=== PATIENT | male | born 1985 | race Caucasian/White ===

== ENCOUNTER → 2023-11-07 10:09 | Outpatient (REF) | payer MEDICARE, SELFPAY | LOC: DHSLP 10:09 | PROVIDERS: ATTENDING PHYSICIAN Internal Medicine Pulmonary Disease; FAMILY PHYSICIAN Emergency Medicine | DX: G47.33 Obstructive sleep apnea (adult) (pediatric) (principal); G47.31 Primary central sleep apnea; R09.02 Hypoxemia | CPT/HCPCS: 95811 ==

== ENCOUNTER 2024-03-10 11:10 | Emergency (ER) | payer MEDICARE, SELFPAY ==
[2024-03-10 11:35] LABS: Glucose - Point of Care 147 mg/dl (70-99)
[2024-03-10 11:37] VITALS: BP 124/74
[2024-03-10 12:17] LABS: Urine Albumin 3+ (Neg - Trace); Urine Bilirubin Negative (Negative); Urine Character Clear (Clear); Urine Color Yellow; Urine Glucose 4+ (Negative); Urine Ketone Negative (Negative); Urine Leukocyte Negative (Negative); Urine Nitrite Negative (Negative); Urine Occult Blood 3+ (Negative); Urine Urobilinogen Negative (Neg - 1+)
[2024-03-10 12:19] LABS: COVID-19 Antigen Negative (Negative)
--- NOTE | 2024-03-10 13:19 | ED.GENMED ---
History of Present Illness
General
Chief Complaint: Cold/Flu/URI Symptoms
Source: patient
Exam Limitations: none
Time Seen by Provider: 03/10/24 13:18
Nursing documentation reviewed up to this point in time: agreed with
History of Present Illness
History of Present Illness:
38 yr old male with past medical history of bipolar depression prematurity at AUTOMATIC MACHINE ATTENDANT shunt lives with mom at home presents to the ER for evaluation of nausea vomiting. Mom reports patient started vomiting yesterday and has vomited 13 times
since. No other sick contacts at home. Pt has felt achy and fatigued.
Past History
Past History
ED Past Medical History: HTN, Hypercholesterolemia, Psychiatric (Bipolar, anxiety) and Other (at , ventricular bleed, hydrocephalus, shunt left side head)
ED Past Surgical History: Brain (Hydrocephalus, AUTOMATIC MACHINE ATTENDANT shunt at , last revision at 18 years of age) and Other (umbilical hernia repair)
Social History
Tobacco: Non-smoker
Drug: None
Personal: Single
Living: with family
Employment: Disabled (Part-time employed at [employer])
Family History
Family History: Other (Noncontributory)
Review of Systems
Review of Systems
Allergies reviewed?: Yes
Other source history: family
All Other Systems: ROS reviewed and negative except as documented in HPI and ROS
Constitutional: Reports no symptoms and fatigue
Respiratory: Reports no symptoms
Cardiac: Reports no symptoms
ABD/GI: Reports nausea and vomiting; Denies abdominal pain or diarrhea
: Reports no symptoms
Skin: Reports no symptoms
Neurological: Reports no symptoms
Psychiatric: Reports no symptoms
Phy Exam
General Physical Exam
General Presentation: no apparent distress
General age: appears stated age
General Skin: warm and dry
General Habitus: normal
General Mental: alert
General Hydration: appears well hydrated
Neurological Exam
Neurological Exam: alert and oriented x3
Course
Orders/Labs/Results
Orders:
Orders
03/10/24 11:39
CR Chest - 2 Views Urgent
Comment:
Reason For Exam: cough
03/10/24 11:52
COVID-19 Antigen Urgent
Source: Nasal Swab
Urinalysis Reflex To Culture Urgent
Date Specimen was Collected: 03/10/24
Time Specimen was Collected: 11:39
Urine Microscopic Reflex Cult Urgent
Influenza A+B Rapid Molecular Stat
JAS Source: Nasal Swab
Specimen Description:
03/10/24 13:31
0.9% Sodium Chloride 1000 ml [Nss] 1,000 ml IV BOLUS
Ondansetron Injectable [Zofran] 4 mg IV NOW STA
03/10/24 13:48
Complete Blood Count/With Diff Urgent
Comprehensive Metabolic Panel Urgent
03/10/24 14:31
Acetaminophen [Tylenol] 650 mg PO NOW STA
03/10/24 15:32
CT Abd/pelvis W Iv Cont Urgent
Comment:
Reason For Exam: hematuria/n/v flu positive
Abnormal Lab Results
03/10/24 03/10/24 03/10/24
11:34 11:52 13:48
RBC 4.48 L 10^6/uL
(4.70-6.10)
Hct 38.1 L %
(39.0-52.0)
Plt Count 126 L 10^3/uL
(130-400)
MPV 12.1 H fL
(7.4-10.4)
Absolute Lymphs (auto) 0.6 L 10^3/uL
(1.2-3.4)
Neutrophils % 77.5 H %
(42.2-75.2)
Lymphocytes % 11.1 L %
(20.5-51.1)
Monocytes % 10.7 H %
(1.7-9.3)
Glucose 102 H mg/dl
(70-99)
Ur Occult Blood Reflex 3+ A
(Negative)
Urine RBC 21-25 A /HPF
(0-2)
Urine Glucose 4+ A
(Negative)
Urine Albumin (Reflex) 3+ A
(Neg - Trace)
POC Glucose 147 H mg/dl
(70-99)
03/10/24 13:48
03/10/24 13:48
Vital Signs
Initial and Last Documented VS:
Initial Vital Signs
Temp Pulse Resp BP Pulse Ox
98.7 F 86 16 124/74 96
03/10/24 11:37 03/10/24 11:37 03/10/24 11:37 03/10/24 11:37 03/10/24 11:37
Last Documented Vital Signs
Temp Pulse Resp BP Pulse Ox
100.2 F 85 16 148/107 95
03/10/24 14:25 03/10/24 14:25 03/10/24 11:37 03/10/24 14:25 03/10/24 14:25
Healthcare Corporate Account Director consulted with Physician
Healthcare Corporate Account Director consulted with physician?: Yes (DR Lyons )
MDM/Problems Addressed
Differential Diagnosis Includes:
Not limited to viral syndrome, COVID, dehydration, /flu
MDM/Problems Addressed:
Patient 38-year-old male with bipolar depression born prematurely developmentally delayed lives with mom presents for nausea vomiting fatigue. Patient found to be flu positive. Patient was medicated for fever along nausea vomiting feeling better
here.incidentally patient was noted to have hematuria 21�25 RBCs in urine. No gross hematuria. Case reviewed with ED physician who does recommend a CAT scan however mom with patient and mom (with whom patient lives with and manages his care) does
not want a CAT scan and would rather follow-up with family doctor as an outpatient for this.
In addition platelets are very minimally low at 126,000 with a normal white count 5.5 and a stable hemoglobin of 13.1. He on reexam feels much better is nontachycardic well-appearing feels well after the home.
Discussed the importance of outpatient follow-up with pcp/urologist , d/c supportive care for fever/flu s/s.
*Radiology
Radiology exam reviewed: radiology read reviewed
*Critical Care Note
Total Time (30-74mins, 75-104mins- exclusive of procedures): Not Applicable
ED Attending Note
-
Portions of this chart may have been created with voice recognition software.� Occasional wrong word or��sound alike� substitutions may have occurred due to the inherent limitations of voice recognition software.
Discharge Plan
Departure
Patient Disposition: Home (Routine Discharge)
Date of Disposition: 03/10/24
Time of Disposition: 16:43
Patient with high blood pressure during this ER visit?: No
Condition: Fair
Covid-19: Not Applicable
Discharge Problem:
Influenza A
Instructions: Fever, Adult (DC), Flu in adults - Discharge instructions
Prescriptions:
No Action
hydroxyzine pamoate 50 MG capsule
50 mg PO BID
clonazepam 0.5 MG tablet
0.5 mg PO Q6HPRN PRN (Reason: anxiety)
gabapentin 300 mg Capsule
300 mg PO BID
duloxetine 20 mg Capsule,Delayed Release(Dr/Ec)
20 mg PO BID
Vraylar 3 mg Capsule
3 mg PO DAILY
metformin 500 mg Tablet
500 mg PO BID@0800,1700 Qty: 60 0RF
(DME) Contour Next Test Strips Strip
Qty: 100 0RF
Rx Instructions:
Pt testing twice a day
glipizide 5 mg Tablet
5 mg PO BID@0800,1700 Qty: 60 0RF
(DME) lancets [Color Lancets] 21 gauge Misc
Qty: 100 0RF
Rx Instructions:
Pt testing 2 times a day
Jardiance 10 mg Tablet
10 mg PO DAILY 30 Days Qty: 30 0RF
carvedilol 6.25 mg Tablet
6.25 mg PO BID Qty: 60 11RF
atorvastatin 10 mg Tablet
10 mg PO QPM Qty: 30 11RF
amlodipine 5 mg Tablet
5 mg PO DAILY Qty: 30 11RF
losartan 25 mg Tablet
25 mg PO DAILY Qty: 30 11RF
furosemide [Lasix] 20 mg tablet
20 mg PO DAILY Qty: 30 11RF
icosapent ethyl [Vascepa] 1 gram capsule
2 g PO BID Qty: 120 11RF
Referrals:
Geetha Patel MD [Family Provider] -
Hitesh José MD [Active] -
Activity Restrictions/Additional Instructions:
As discussed please follow-up with your family doctor in the next several days for reevaluation of your symptoms .
stay well-hydrated .
. You may take Tylenol for fever chills body aches.
In addition please follow-up for further evaluation of blood in urine. You may follow-up with family doctor first/ urology. Also have your platelets rechecked as they are mildly low.
Return if any worsening of symptoms.
Interventions
Interventions:
*Risk Screen - Suicide Last Done: 03/10/24 11:37
*General Assessment Last Done: 03/10/24 14:22
*Neglect/Abuse Screening Last Done: 03/10/24 11:37
ED- Fall Risk Assessment Last Done: 03/10/24 14:22
*ED COVID-19 Vaccine History Last Done: 03/10/24 14:22
*Nursing Disposition Last Done: 03/10/24 17:02
ED- Pulmonary Assessment Last Done: 03/10/24 14:22
Discharge Date and Time
Discharge Date/Time: 03/10/24 17:03
Print Language: CYMRAES
[2024-03-10] MEDS: ZOFRAN 4 MG IV (13:54)
[2024-03-10] MEDS: NSS 1000 IV (13:55)
[2024-03-10 14:09] LABS: ALT (SGPT) 37 U/L (0-50); AST (SGOT) 21 U/L (17-59); Albumin 4.5 g/dl (3.5-5.0); Alkaline Phosphatase 52 U/L (38-126); Blood Urea Nitrogen 13 mg/dl (9-20); Calcium 9.3 mg/dl (8.4-10.2); Carbon Dioxide 29 mmol/L (22-30); Chloride 100 mmol/L (98-107); Glucose 102 mg/dl (70-99); Potassium 4.3 mmol/L (3.5-5.1); Sodium 137 mmol/L (135-145); Total Bilirubin 1.2 mg/dl (0.2-1.3); Total Protein 6.9 g/dl (6.3-8.2); eGFR > 60.00
[2024-03-10 14:16] LABS: % Basophils 0.2 % (0-2); % Immature Granulocytes 0.5 % (0-0.5); % Lymphocytes 11.1 % (20.5-51.1); % Monocytes 10.7 % (1.7-9.3); % Neutrophils 77.5 % (42.2-75.2); Absolute Lymphocytes 0.6 10^3/uL (1.2-3.4); Absolute Monocytes 0.6 10^3/uL (0.1-0.6); Absolute Neutrophils 4.3 10^3/uL (1.4-6.5); Hematocrit 38.1 % (39.0-52.0); Hemoglobin 13.1 g/dL (13.0-18.0); Mean Corp Hgb Conc. 34.4 g/dL (33.0-37.0); Mean Corpuscular Hgb 29.2 pg (27.0-31.0); Mean Platelet Volume 12.1 fL (7.4-10.4); Nucleated Red Blood Cells % 0 % (-); Platelet Count 126 10^3/uL (130-400); Red Blood Cell Count 4.48 10^6/uL (4.70-6.10); Red Cell Dist. Width 13.8 % (11.5-14.5); White Blood Cell Count 5.5 10^3/uL (4.8-10.8)
[2024-03-10 14:25] VITALS: BP 148/107
[2024-03-10 14:44] LABS: Urine Mucus Moderate
[2024-03-10 14:46] LABS: Urine Amorphous Seen; Urine Red Blood Cell 21-25 /HPF (0-2); Urine Urothelial Cell 0-2 /LPF (FEW); Urine White Cell 0-2 /HPF (0-5)
[2024-03-10] MEDS: TYLENOL 650 MG PO (14:46)
== END 2024-03-10 17:03 | disposition home or self-care (01) ==
LOC: EMR 11:10
PROVIDERS: Emergency Medicine; EMERGENCY PHYSICIAN Student in an Organized Health Care Education/Training Program; FAMILY PHYSICIAN Emergency Medicine
DX: J10.1 Influenza due to other identified influenza virus with other respiratory manifestations (principal); R11.2 Nausea with vomiting, unspecified; R31.9 Hematuria, unspecified; E78.00 Pure hypercholesterolemia, unspecified; I10 Essential (primary) hypertension; R62.50 Unspecified lack of expected normal physiological development in childhood; Z98.2 Presence of cerebrospinal fluid drainage device
CPT/HCPCS: 96374; 96361; 99284; 71046; 80053; 81003; 81015; 82962; 85025; 87502; 87811

== ENCOUNTER 2024-04-19 21:15 | Emergency (ER) | payer MEDICARE, SELFPAY ==
[2024-04-19 21:25] VITALS: BP 163/102
--- NOTE | 2024-04-20 00:10 | ED.GENMED ---
History of Present Illness
General
Chief Complaint: Abdominal Pain
Source: patient and family (Mother who is accompanying)
Exam Limitations: none
Time Seen by Provider: 04/19/24 23:42
Nursing documentation reviewed up to this point in time: agreed with
History of Present Illness
History of Present Illness:
This is a 38-year-old gentleman with history of morbid obesity, prematurity at with congenital hydrocephalus requiring ALLOCATIONS CLERK shunt, hyperlipidemia, bipolar disorder, resides at home with his mother.
He presents with approximately 1 week history of constipation which is unusual for him. He has been taking several [id number]-[id number] medications for constipation, initially Dulcolax tablets which did not seem to be helpful then switched to Dulcolax
liquid. He has been passing several loose nonbloody stools yesterday and again today accompanied with some crampy lower abdominal pain that has progressed throughout the day today. Tonight with episode of crampy lower abdominal pain he had a brief
episode of lightheadedness. He denies fever nor chills. He does admit to mild nausea tonight, unable to eat his dinner but has had no vomiting.
No history of similar episodes in the past.
Several family members with history of colitis including a brother and mother.
No recent travel nor recent antibiotic use.
He denies dysuria and urgency and or hematuria, denies back or flank pain.
Past History
Past History
ED Past Medical History: HTN, Hypercholesterolemia, Psychiatric (Bipolar, anxiety) and Other (at , ventricular bleed, hydrocephalus, shunt left side head)
ED Past Surgical History: Brain (Hydrocephalus, ALLOCATIONS CLERK shunt at , last revision at 18 years of age) and Other (umbilical hernia repair)
Social History
Tobacco: Non-smoker
Alcohol: None
Drug: None
Personal: Single
Living: with family
Employment: Disabled (Part-time employed at [employer])
Family History
Family History: Other (Colitis-mother as well as brother)
Phy Exam
Physical Exam
Physical Exam:
GENERAL: 38-year-old obese gentleman appears his stated age, bright and alert, pleasant, appears in no acute distress. Mother is accompanying.
EYE: anicteric
NECK: Supple, nontender, no meningismus, no significant adenopathy.
ENT: oral mucosa is moist. No rhinorrhea.
CARDIAC: Regular rate and rhythm. no murmur.
LUNGS: Clear breath sounds bilaterally, no acute respiratory distress, no wheezes/rales/rhonchi
ABDOMEN: Obese, soft, nondistended, moderate tenderness suprapubic region as well as mild tenderness right lower quadrant, no r/g, no cvat. No palpable masses, normoactive BS.
NEUROLOGICAL: Alert and oriented x3, no focal neuro deficits. Gait is steady.
SKIN: Warm and dry, normal color, skin intact. No rash.
MUSCULOSKELETAL: No C/C/E. peripheral pulses are full and equal b/l. No palpable tenderness.
PSYCH: Normal and appropriate interaction.
Course
Orders/Labs/Results
Orders:
Orders
04/19/24 23:59
Urinalysis Reflex To Culture Urgent
Date Specimen was Collected: 04/20/24
Time Specimen was Collected: 00:03
04/20/24 00:01
CT Abd/pelvis W Iv Cont Urgent
Reason For Exam: suprapubic abd pain, diarrhea x 2 days
04/20/24 00:07
Urine Microscopic Reflex Cult Urgent
04/20/24 00:09
Complete Blood Count/With Diff Urgent
Comprehensive Metabolic Panel Urgent
Lipase Urgent
04/20/24 00:15
Diphenhydramine [Benadryl] 50 mg IV NOW STA
Hydrocortisone Sod Succinate [Solu-Cortef] 200 mg IV NOW STA
Abnormal Lab Results
04/20/24 04/20/24
00:07 00:09
RBC 4.59 L 10^6/uL
(4.70-6.10)
Hct 37.7 L %
(39.0-52.0)
MPV 12.2 H fL
(7.4-10.4)
Glucose 128 H mg/dl
(70-99)
Ur Occult Blood Reflex 1+ A
(Negative)
Urine RBC 3-6 A /HPF
(0-2)
Urine Albumin (Reflex) 3+ A
(Neg - Trace)
04/20/24 00:09
04/20/24 00:09
Vital Signs
Initial and Last Documented VS:
Initial Vital Signs
Temp Pulse Resp BP Pulse Ox
98.3 F 84 18 163/102 97
04/19/24 21:25 04/19/24 21:25 04/19/24 21:25 04/19/24 21:25 04/19/24 21:25
Last Documented Vital Signs
Temp Pulse Resp BP Pulse Ox
98.3 F 81 18 151/83 95
04/19/24 21:25 04/20/24 02:28 04/20/24 02:28 04/20/24 02:28 04/20/24 02:28
MDM/Problems Addressed
Differential Diagnosis Includes:
Concern for acute colitis, diverticulitis, appendicitis, UTI. As patient has been passing loose stools over the past 2 days, constipation is less likely.
History of umbilical hernia repair, small bowel obstruction is also a consideration however also less likely.
Will check labs, urinalysis and plan for CT abdomen pelvis with IV contrast.
Reports history of shellfish allergy, will premedicate with Solu-Cortef and Benadryl.
Chronic conditions affecting care: Previous abdomnial surgery
*Radiology
Radiology exam reviewed: radiology read reviewed
*Pulse Oximetry
Patient hypoxic: no
*Critical Care Note
Total Time (30-74mins, 75-104mins- exclusive of procedures): Not Applicable
Update Note
Update Note:
02:30
Pt resting comfortably
CT shows liquid stool throughout the colon. concerning for enterocolitis
I suspect r/t recent laxative use
recommend he avoid further laxatives, bland diet. Encourage clear liquids
prompt fu with PCP for recheck.
ED Attending Note
-
Portions of this chart may have been created with voice recognition software.� Occasional wrong word or��sound alike� substitutions may have occurred due to the inherent limitations of voice recognition software.
Discharge Plan
Departure
Patient Disposition: Home (Routine Discharge)
Date of Disposition: 04/20/24
Time of Disposition: 02:39
Patient with high blood pressure during this ER visit?: No
Condition: Good
Discharge Problem:
Acute diarrhea r/t laxative use
Instructions: Acute Diarrhea
Prescriptions:
No Action
hydroxyzine pamoate 50 MG capsule
50 mg PO BID
clonazepam 0.5 MG tablet
0.5 mg PO Q6HPRN PRN (Reason: anxiety)
gabapentin 300 mg Capsule
300 mg PO BID
duloxetine 20 mg Capsule,Delayed Release(Dr/Ec)
20 mg PO BID
Vraylar 3 mg Capsule
3 mg PO DAILY
metformin 500 mg Tablet
500 mg PO BID@0800,1700 Qty: 60 0RF
(DME) Contour Next Test Strips Strip
Qty: 100 0RF
Rx Instructions:
Pt testing twice a day
glipizide 5 mg Tablet
5 mg PO BID@0800,1700 Qty: 60 0RF
(DME) lancets [Color Lancets] 21 gauge Misc
Qty: 100 0RF
Rx Instructions:
Pt testing 2 times a day
Jardiance 10 mg Tablet
10 mg PO DAILY 30 Days Qty: 30 0RF
carvedilol 6.25 mg Tablet
6.25 mg PO BID Qty: 60 11RF
atorvastatin 10 mg Tablet
10 mg PO QPM Qty: 30 11RF
amlodipine 5 mg Tablet
5 mg PO DAILY Qty: 30 11RF
losartan 25 mg Tablet
25 mg PO DAILY Qty: 30 11RF
furosemide [Lasix] 20 mg tablet
20 mg PO DAILY Qty: 30 11RF
icosapent ethyl [Vascepa] 1 gram capsule
2 g PO BID Qty: 120 11RF
Referrals:
Geetha Patel MD [Family Provider] - Call in 1-3 days for appt
UNKNOWN - PT NOT,INTERVIEWE [Unknown Provider] -
Interventions
Interventions:
*Risk Screen - Suicide Last Done: 04/19/24 21:26
*General Assessment Last Done: 04/19/24 21:26
*Neglect/Abuse Screening Last Done: 04/19/24 21:26
*ED COVID-19 Vaccine History Last Done: 04/19/24 21:26
EO-Bcmnvu-Oqyxtknacm Assessment Last Done: 04/20/24 00:10
Discharge Date and Time
Print Language: ICELANDIC
[2024-04-20 00:16] LABS: % Basophils 0.3 % (0-2); % Eosinophils 1.2 % (0-6); % Immature Granulocytes 0.5 % (0-0.5); % Lymphocytes 24.6 % (20.5-51.1); % Monocytes 7.4 % (1.7-9.3); Absolute Eosinophils 0.1 10^3/uL (0-0.7); Absolute Lymphocytes 1.9 10^3/uL (1.2-3.4); Absolute Monocytes 0.6 10^3/uL (0.1-0.6); Hematocrit 37.7 % (39.0-52.0); Hemoglobin 13.2 g/dL (13.0-18.0); Mean Corpuscular Hgb 28.8 pg (27.0-31.0); Mean Corpuscular Volume 82.1 fL (80.0-94.0); Mean Platelet Volume 12.2 fL (7.4-10.4); Nucleated Red Blood Cells % 0 % (-); Platelet Count 177 10^3/uL (130-400); Red Blood Cell Count 4.59 10^6/uL (4.70-6.10); Red Cell Dist. Width 13.5 % (11.5-14.5); White Blood Cell Count 7.6 10^3/uL (4.8-10.8)
[2024-04-20 00:18] LABS: Urine Albumin 3+ (Neg - Trace); Urine Bilirubin Negative (Negative); Urine Character Clear (Clear); Urine Color Yellow; Urine Glucose Negative (Negative); Urine Ketone Negative (Negative); Urine Leukocyte Negative (Negative); Urine Nitrite Negative (Negative); Urine Occult Blood 1+ (Negative); Urine Urobilinogen Negative (Neg - 1+)
[2024-04-20] MEDS: BENADRYL 50 MG IV (00:24)
[2024-04-20] MEDS: SOLU-CORTEF 200 MG IV (00:25)
[2024-04-20 00:35] LABS: Urine White Cell 0-2 /HPF (0-5)
[2024-04-20 00:46] LABS: ALT (SGPT) 49 U/L (0-50); AST (SGOT) 28 U/L (17-59); Albumin 4.2 g/dl (3.5-5.0); Alkaline Phosphatase 49 U/L (38-126); Blood Urea Nitrogen 18 mg/dl (9-20); Calcium 9.3 mg/dl (8.4-10.2); Carbon Dioxide 26 mmol/L (22-30); Chloride 103 mmol/L (98-107); Glucose 128 mg/dl (70-99); Lipase 104 U/L (23-300); Potassium 4.2 mmol/L (3.5-5.1); Sodium 137 mmol/L (135-145); Total Bilirubin 0.7 mg/dl (0.2-1.3); Total Protein 6.9 g/dl (6.3-8.2); eGFR > 60.00
[2024-04-20 02:28] VITALS: BP 151/83
== END 2024-04-20 02:50 | disposition home or self-care (01) ==
LOC: EMR 21:15
PROVIDERS: EMERGENCY PHYSICIAN Emergency Medicine; FAMILY PHYSICIAN Emergency Medicine
DX: R19.7 Diarrhea, unspecified (principal); E66.01 Morbid (severe) obesity due to excess calories; E78.00 Pure hypercholesterolemia, unspecified; F31.9 Bipolar disorder, unspecified; I10 Essential (primary) hypertension; K59.00 Constipation, unspecified; Z86.73 Personal history of transient ischemic attack (TIA), and cerebral infarction without residual deficits; Z98.2 Presence of cerebrospinal fluid drainage device
CPT/HCPCS: 99284; 96374; 96375; 74177; 80053; 81003; 81015; 83690; 85025; Q9967

== ENCOUNTER 2024-08-31 13:13 | Emergency (ER) | payer MEDICARE, OTHER, SELFPAY ==
[2024-08-31 13:21] VITALS: BP 136/84
--- NOTE | 2024-08-31 15:28 | ED.GENMED ---
History of Present Illness
General
Chief Complaint: Back Pain
Source: patient
Exam Limitations: none
Time Seen by Provider: 08/31/24 15:04
Nursing documentation reviewed up to this point in time: agreed with
History of Present Illness
History of Present Illness:
Patient to ED with complaint of low back pain with radiation to BLE. Symptoms started on Sunday. Denies fever/chills, recent illness. No history of trauma. No history of chronic back issues. Denies bowel or bladder issues. No saddle paresthesia,
no weakness in extremities. To ED accompanied by mother for eval.
Past History
Past History
ED Past Medical History: HTN, Hypercholesterolemia, Psychiatric (Bipolar, anxiety) and Other (at , ventricular bleed, hydrocephalus, shunt left side head)
ED Past Surgical History: Brain (Hydrocephalus, SENIOR SUPPLIER QUALITY ENGINEER shunt at , last revision at 18 years of age) and Other (umbilical hernia repair)
Social History
Tobacco: Non-smoker
Alcohol: None
Drug: None
Personal: Single
Living: with family
Employment: Disabled (Part-time employed at [employer])
Family History
Family History: Other (Colitis-mother as well as brother)
Review of Systems
Review of Systems
Allergies reviewed?: Yes
All Other Systems: ROS reviewed and negative except as documented in HPI and ROS
Constitutional: Reports no symptoms
EENT: Reports no symptoms
Respiratory: Reports no symptoms
Cardiac: Reports no symptoms
ABD/GI: Reports no symptoms
: Reports no symptoms
Musculoskeletal: Reports back pain (low back pain)
Skin: Reports no symptoms
Neurological: Reports no symptoms
Psychiatric: Reports no symptoms
Phy Exam
General Physical Exam
General Presentation: moderate distress
General age: appears stated age
General Skin: warm and dry
General Habitus: normal
General Mental: alert
Musculoskeletal Exam
Musculoskeletal Exam: full ROM, no edema and neuro vasc intact
Skin Exam
Skin Exam: normal color, warm/dry and no rash
Psychiatric Exam
Psychiatric Exam: normal mood/affect
Course
Orders/Labs/Results
Orders:
Orders
08/31/24 15:24
Oxycodone/Acetaminophen [Percocet 5/325] 1 tablet PO NOW STA
Lumbar Spine Complete, 4 View [CR Lumbar Spine Comp Min 4 Vw*] Urgent
Comment:
Reason For Exam: low back pain
Vital Signs
Initial and Last Documented VS:
Initial Vital Signs
Temp Pulse Resp BP Pulse Ox
98.6 F 87 16 136/84 99
08/31/24 13:21 08/31/24 13:21 08/31/24 13:21 08/31/24 13:21 08/31/24 13:21
Last Documented Vital Signs
Temp Pulse Resp BP Pulse Ox
98.6 F 87 16 136/84 99
08/31/24 13:21 08/31/24 13:21 08/31/24 13:21 08/31/24 13:21 08/31/24 15:32
*Radiology
Radiology exam reviewed: radiology read reviewed
*Pulse Oximetry
SaO2: 99
Oxygen Mode of Delivery: Room air
Patient hypoxic: no
*Critical Care Note
Total Time (30-74mins, 75-104mins- exclusive of procedures): Not Applicable
Update Note
Update Note:
Ppatient to ED with complaint of low back pain x 2 days. No known trauma. No bowel or bladder symptoms, no saddle paresthesia, no weakness in extremities. No concern for cauda equina. Improved with pain medication. Xray without acute findings.
WIll discharge home with short course of pain medication. WIll [facility] PCP in AM. Given instructions on s/s to return to ED andhe/mother are agreeable to plan.
ED Attending Note
-
Portions of this chart may have been created with voice recognition software.� Occasional wrong word or��sound alike� substitutions may have occurred due to the inherent limitations of voice recognition software.
Discharge Plan
Departure
Patient Disposition: Home (Routine Discharge)
Date of Disposition: 08/31/24
Time of Disposition: 16:50
Patient with high blood pressure during this ER visit?: No
Condition: Good
Covid-19: Not Applicable
Discharge Problem:
Low back pain
Instructions: Low Back Pain (DC), Radiculopathy (DC), Naproxen, Cold therapy for pain
Prescriptions:
New
oxycodone-acetaminophen [Percocet] 5-325 mg tablet
1 tab PO Q4HPRN PRN (Reason: pain) Qty: 10 0RF
No Action
hydroxyzine pamoate 50 MG capsule
50 mg PO BID
clonazepam 0.5 MG tablet
0.5 mg PO Q6HPRN PRN (Reason: anxiety)
gabapentin 300 mg Capsule
300 mg PO BID
duloxetine 20 mg Capsule,Delayed Release(Dr/Ec)
20 mg PO BID
Vraylar 3 mg Capsule
3 mg PO DAILY
metformin 500 mg Tablet
500 mg PO BID@0800,1700 Qty: 60 0RF
(DME) Contour Next Test Strips Strip
Qty: 100 0RF
Rx Instructions:
Pt testing twice a day
glipizide 5 mg Tablet
5 mg PO BID@0800,1700 Qty: 60 0RF
(DME) lancets [Color Lancets] 21 gauge Misc
Qty: 100 0RF
Rx Instructions:
Pt testing 2 times a day
Jardiance 10 mg Tablet
10 mg PO DAILY 30 Days Qty: 30 0RF
carvedilol 6.25 mg Tablet
6.25 mg PO BID Qty: 60 11RF
atorvastatin 10 mg Tablet
10 mg PO QPM Qty: 30 11RF
amlodipine 5 mg Tablet
5 mg PO DAILY Qty: 30 11RF
losartan 25 mg Tablet
25 mg PO DAILY Qty: 30 11RF
furosemide [Lasix] 20 mg tablet
20 mg PO DAILY Qty: 30 11RF
icosapent ethyl [Vascepa] 1 gram capsule
2 g PO BID Qty: 120 11RF
Referrals:
Geetha Patel MD [Family Provider, Internal Medicine] - Tomorrow
Activity Restrictions/Additional Instructions:
Return to the emergency department for any changes in/worsening of your symptoms
Interventions
Interventions:
*Risk Screen - Suicide Last Done: 08/31/24 13:23
*General Assessment Last Done: 08/31/24 15:46
*Neglect/Abuse Screening Last Done: 08/31/24 13:23
*ED- Fall Risk Assessment Last Done: 08/31/24 15:46
*ED COVID-19 Vaccine History Last Done: 08/31/24 15:46
*Nursing Disposition Last Done: 08/31/24 17:18
ED-Musculoskeletal Assessment Last Done: 08/31/24 15:48
Discharge Date and Time
Discharge Date/Time: 08/31/24 17:19
Print Language: [email or web address]
Musculoskeletal Injury Exam
Musculoskeletal Injury Exam
Bilateral Lower Back:
Pain with Movement?: Moderate
Tender to palpation?: Moderate
Soft tissue swelling?: None
External deformity and angulation?: None
Joint effusion?: None
Contusion?: None
Hematoma-local bleeding into tissue?: None
Strain- Sprain- Tear (Connective tissue injury)?: Moderate
Crepitus with movement?: No
Joint instability?: No
Malalignment/deformity?: No
Range of motion: Limited
Distal skin color and temperature: normal-warm & good color
Capillary Refill: normal
Normal distal neurovascular exam?: Yes
[2024-08-31 15:42] VITALS: BMI 52.5
[2024-08-31] MEDS: PERCOCET 5/325 1 TABLET PO (15:44)
== END 2024-08-31 17:19 | disposition home or self-care (01) ==
LOC: EMR 13:13
PROVIDERS: EMERGENCY PHYSICIAN Emergency Medicine; FAMILY PHYSICIAN Emergency Medicine
DX: M54.50 Low back pain, unspecified (principal); I10 Essential (primary) hypertension; F31.9 Bipolar disorder, unspecified; E78.00 Pure hypercholesterolemia, unspecified; F41.9 Anxiety disorder, unspecified; E11.9 Type 2 diabetes mellitus without complications; G91.9 Hydrocephalus, unspecified; G47.30 Sleep apnea, unspecified; E66.01 Morbid (severe) obesity due to excess calories; F32.A Depression, unspecified; Z98.2 Presence of cerebrospinal fluid drainage device; Z79.84 Long term (current) use of oral hypoglycemic drugs; Z91.040 Latex allergy status; Z91.013 Allergy to seafood
CPT/HCPCS: 99283; 72110